=== PATIENT | male | born 1945 | race Caucasian/White ===

== ENCOUNTER → 2018-02-01 09:19 | Outpatient (CLI) | payer MEDICARE, SELFPAY ==
--- NOTE | 2018-02-01 09:21 | DI.MRI.S_ITS ---
PROCEDURE: MR LUMBAR SPINE WO CON INDICATIONS: Lumbosacral spondylosis with facet arthropathy TECHNIQUE: Noncontrast sagittal T1 spin echo and T2 fast echo, sagittal STIR, axial T1 and T2 fast spin echo through the lumbar spine. In cases with scoliosis, additional coronal T2 fast spin echo may be performed. COMPARISON: [facility] , CT, KUB - CT (PNL), 01/13/2010, 9:56. [facility], CR, XR KUB, 04/21/2016, 9:15. FINDINGS: Image quality: Excellent. Alignment and Curvature: Rudimentary ribs at T12. 5 lumbar type vertebral bodies by plain film. There is loss of normal lumbar lordosis. There is mild grade 1 retrolisthesis of L3 on L4. Bone Marrow: Marrow is of normal overall signal. No acute vertebral body compression fractures. There is moderate reactive signal within the superior L5 endplate. Mild reactive signal within the endplates adjacent to the L2-L3, L3-L4, and L5-S1 intervertebral discs is present. Hemangiomas at L1 and L2 are present. Spinal Cord: Conus medullaris terminates at the upper L2 level. Visualized cord demonstrates normal signal and size. Paraspinous Soft Tissues: No paravertebral masses. Mild right hydronephrosis. Moderate right extrarenal pelvic dilatation. This is similar to [id number]. L1-L2: Mild disc desiccation and mild diffuse disc bulge. Mild facet hypertrophy bilaterally. Mild canal stenosis. Mild foraminal stenosis bilaterally. L2-L3: Mild disc height loss and desiccation. Mild diffuse disc bulge with small superimposed left far lateral protrusion/osteophyte. Mild facet hypertrophy bilaterally. Mild canal stenosis. Mild left greater than right foraminal stenosis. L3-L4: Moderate disc height loss and desiccation. Mild diffuse disc bulge/osteophyte with small superimposed right far lateral protrusion. Mild facet hypertrophy bilaterally. Mild canal stenosis. Moderate right and mild left foraminal stenosis. L4-L5: Mild disco loss and desiccation. Mild diffuse disc bulge/osteophyte. Mild facet hypertrophy bilaterally. Mild canal stenosis. Mild foraminal stenosis bilaterally. L5-S1: Mild disc desiccation and diffuse disc bulge. Mild bilateral facet hypertrophy. Mild canal stenosis. Mild foraminal stenosis bilaterally. IMPRESSION: 1. Multilevel degenerative disc and facet disease, causing mild multilevel canal stenoses. Multilevel foraminal stenoses are present, worst on the right at L3-L4, where there is moderate foraminal stenosis. 2. No significant change in right hydronephrosis and right extrarenal pelvic dilatation compared to 2010. Dictated by: Rajwinder Martell M.D. on 02/01/2018 at 10:58 Approved by: Rajwinder Martell M.D. on 02/01/2018 at 11:17
== END ==
PROVIDERS: PCP Family Medicine; Visit Provider Physical Medicine & Rehabilitation
DX: M47.817 Spondylosis without myelopathy or radiculopathy, lumbosacral region (principal); M51.36 Other intervertebral disc degeneration, lumbar region; M51.37 Other intervertebral disc degeneration, lumbosacral region; M48.061 Spinal stenosis, lumbar region without neurogenic claudication; M48.07 Spinal stenosis, lumbosacral region; N13.30 Unspecified hydronephrosis; N28.89 Other specified disorders of kidney and ureter
CPT/HCPCS: 72148

== ENCOUNTER → 2018-02-14 16:12 | Outpatient (CLI) | payer MEDICARE, SELFPAY ==
--- NOTE | 2018-02-14 16:14 | DI.RAD.S_ITS ---
PROCEDURE: XR LUMBAR SPINE MIN 4V INDICATIONS: Lumbosacral spondylosis with facet arthropathy TECHNIQUE: 5 views of the lumbar spine were acquired. COMPARISON: [facility], MR, MR LUMBAR SPINE WO CON, 02/01/2018, 9:31. FINDINGS: Bones: 5 [id number] vertebrae are present. There is mild scoliosis. normal bony alignment. No vertebral body compression fractures. No pars defects. No suspicious bony lesions. There is moderate degenerative disc disease at L3-L4 and mild degenerative disc disease at L1-L2, L2-L3, L4-L5 and L5-S1. Moderate to severe facet arthropathy at L4-L5 and L5-S1. Soft tissues: Overlying bowel gas pattern is normal. No suspicious soft tissue calcifications. Oblique images: No pars defects. IMPRESSION: Degenerative disc and facet disease in lumbar spine as described. Dictated by: Chitra Levine M.D. on 02/14/2018 at 17:03 Approved by: Chitra Levine M.D. on 02/14/2018 at 17:08
== END ==
PROVIDERS: PCP Family Medicine; Visit Provider Physical Medicine & Rehabilitation
DX: M47.817 Spondylosis without myelopathy or radiculopathy, lumbosacral region (principal); M51.37 Other intervertebral disc degeneration, lumbosacral region; M51.36 Other intervertebral disc degeneration, lumbar region; M47.816 Spondylosis without myelopathy or radiculopathy, lumbar region; M46.96 Unspecified inflammatory spondylopathy, lumbar region; M47.27 Other spondylosis with radiculopathy, lumbosacral region
CPT/HCPCS: 72110; 99214

== ENCOUNTER 2018-02-19 09:25 | Outpatient (CLI) | payer MEDICARE, SELFPAY ==
[2018-02-19] VITALS (9 sets, daily range): BP systolic 144–185; BP diastolic 90–105; PULSE 78–88; RESP 16–20; TEMP 36.1; O2SAT 100
--- NOTE | 2018-02-19 09:26 | DI.RAD.S_ITS ---
PROCEDURE: PAIN L/S FACET INJ/BLK 1ST DAYO COMPARISON: [facility], CR, XR LUMBAR SPINE MIN 4V, 02/14/2018, 16:03. [facility], MR, MR LUMBAR SPINE WO CON, 02/01/2018, 9:31. INDICATIONS: Lumbosacral spondylosis with facet arthropathy FINDINGS: Successful right-sided L3-4 and L4-5 needle tip localization for facet epidural steroid injection. IMPRESSION: Right-sided needle tip localization as discussed, in the expected position of the facet joints for epidural steroid injection. Dictated by: Armen Colon M.D. on 02/19/2018 at 13:09 Approved by: Armen Colon M.D. on 02/19/2018 at 13:10
--- NOTE | 2018-02-19 10:23 | PM.PROC.1 ---
Procedures Date/Time Date of procedure: 02/19/18 Time of procedure: 10:23 General Procedure description: PREOP DIAGNOSIS 1. FACET ARTHROPATHY 2. AXIAL LBP 3. MULTILEVEL DDD POST OP DIAGNOSIS 1. FACET ARTHROPATHY 2. AXIAL LBP 3. MULTILEVEL DDD PROCEDURES 1. FLUORSCOPICALLY GUIDED CONTRAST CONTROLLED FACET JOINT INJECTIONS BILATERAL L3/4, L4/5 PHYSICIAN: Tra Naylor DO INDICATIONS: Nuno is referred by Dr. Dent for treatment of Axial LBP FINDINGS Multilevel Facet Arthropathy with Clinically significant axial LBP DESCRIPTION OF PROCEDURE Fluoroscopically guided, contrast-controlled bilateral L3/4, L4/5 facet joint injections. Following denial of allergy and review of potential side effects and complications, including, but not necessarily limited to, infection, allergic reaction, local tissue breakdown, stroke, temporary or permanent nerve injury, paralysis, and possible , the patient indicated that the patient understood and agreed to proceed. An informed consent document was signed by the patient, witnessed by a nurse, and placed in the patient's chart. Additionally, other treatment options including medications, modalities, and physical therapy were reviewed with the patient. After review of previous anaesthesic history and IV conscious sedation the patient was deemed safe to proceed with todays procedure with IV conscious sedation as ASA class II designation. Safety time-out was performed to confirm patient ID, procedure to be performed and site of procedure. IV sedation was accomplished with a combination of 4mg of Versed was administered by the RN after DO order, titrated to patient comfort during the course of the procedure while the patient remained responsive to all verbal commands. In the prone position, following sterile prep and drape of the lumbar region, the posterior aspect of the L3/4, L4/5 facet joints were identified fluoroscopically. The skin was anesthetized via a 25-gauge 1.5-inch needle with 1% lidocaine solution into the corresponding facet joints. At this point, a 22-gauge 3.5-inch spinal needle was atraumatically introduced and advanced under fluoroscopic guidance into the corresponding facet joints. Following negative aspiration, injections of approximately 0.2-cc of Isovue 200 confirmed interarticular placement without vascular uptake. The identical procedure was then performed at the L3/4, L4/5 facet joints on the left. Radiological data, including multiple fluoroscopic views of the lumbosacral spine, reveal a spinal needle at the L3/4, L4/5 facet joints bilaterally. Subsequent views show flow of contrast material both superiorly and inferiorly within the joint space without vascular or intrathecal uptake. At this point, a total of 0.5 cc including a mixture of 0.25 cc Marcaine and 0.25 cc betamethasone was injected without complication into each of the corresponding facet joints. The patient tolerated the procedure well without signs or symptoms of complications prior to transfer to the recovery area continued monitoring without incident. The patient was then transferred to the recovery area where they were observed for an appropriate period of time after the injection. The patient reported a VAS score of 7 prior to the procedure and a post-procedure VAS of 0. Total Fluoroscopy Time: 20.3 seconds Total Conscious Sedation Time: 24min POST OP INSTRUCTIONS The patient was provided a Pain Log to continue to record their response to the target-specific procedure prior to follow-up visit with their referring physician. Additionally, specific post-injection care instructions and a contact number to our office were provided if concerns arise regarding possible complications associated with the procedure are suspected. Tra Naylor DO Complications: none
[2018-02-19] MEDS: MIDAZOLAM 5 MG/5 ML VIAL IV (10:29)
[2018-02-19] MEDS: BUPIVACAINE 0.5% (PF) VIAL 5 ML INJ (10:36)
[2018-02-19] MEDS: IOPAMIDOL 15 ML VIAL 3 ML INJ (10:36)
[2018-02-19] MEDS: BETAMETHASONE 30 MG/5 ML MDV 12 MG INJ (10:37)
[2018-02-19] MEDS: LIDOCAINE 1% 20 ML INJ 10 ML INJ (10:37)
--- NOTE | 2018-02-20 14:13 | PC.NURSE ---
FOLLOW UP PHONE CALL MADE. PT STATES PAIN HAS DECREASED. PT STATED HE HAD ASKED ABOUT HIS NECK, WHICH DR. MELVIN TOLD HIM COULD NOT BE VISUALIZED ON MRI. PT ASKING IF ANOTHER MRI IS NEEDED. HAVE LEFT MSG WITH DR. MELVIN ABOUT PT'S CONCERN.
== END 2018-02-19 11:08 ==
LOC: RAD 09:25
PROVIDERS: PCP Family Medicine; Visit Provider Physical Medicine & Rehabilitation
DX: M47.816 Spondylosis without myelopathy or radiculopathy, lumbar region (principal); M51.36 Other intervertebral disc degeneration, lumbar region; M47.817 Spondylosis without myelopathy or radiculopathy, lumbosacral region; M54.5 Low back pain
CPT/HCPCS: 64493; 99152; J0702; J2250

== ENCOUNTER → 2018-03-08 07:56 | Outpatient (CLI) | payer MEDICARE, SELFPAY ==
--- NOTE | 2018-03-08 07:59 | DI.MRI.S_ITS ---
PROCEDURE: MR CERVICAL SPINE WO CON INDICATIONS: cervical spondylosis TECHNIQUE: Noncontrast sagittal T1 spin echo and T2 fast spin echo, sagittal STIR, foraminal oblique sagittal T2 fast spin echo, and axial gradient echo or T2 fast spin echo through the cervical spine. COMPARISON: None. FINDINGS: Image quality: Excellent. Alignment and Curvature: There is normal bony alignment. Bone Marrow: Marrow demonstrates normal overall signal. Spinal Cord: Visualized spinal cord has normal size and signal. No cerebellar tonsillar herniation. Paraspinous Soft Tissues: No paravertebral masses. Prevertebral soft tissues are normal in thickness. C2-C3: Loss of disc signal. Mild diffuse disc bulge. No central stenosis. Mild right and moderate left facet hypertrophy. Severe left neural foraminal narrowing with flattening deformity exiting left C3 nerve root. C3-C4: Loss of disc signal. Mild loss of disc height. Mild diffuse disc bulge. No central stenosis. Moderate bilateral facet hypertrophy. Mild bilateral uncovertebral joint hypertrophy. Moderate to severe bilateral neural foraminal narrowing with slight flattening deformity of the exiting C4 nerve roots. C4-C5: Loss of disc signal. Mild, diffuse disc bulge. Moderate bilateral facet hypertrophy. Mild bilateral uncovertebral joint hypertrophy. Mild narrowing of the central canal. Severe right and moderate left neural foraminal narrowing with flattening deformity exiting right C5 nerve root. C5-C6: Loss of the signal. Mild, diffuse disc bulge. Mild narrowing of the central canal. Moderate bilateral facet hypertrophy. Moderate bilateral uncovertebral joint hypertrophy. Severe right and moderate left neural foraminal narrowing with flattening deformity exiting right C6 nerve root. C6-C7: Loss of disc signal and height. Mild, diffuse disc bulge. Mild central canal narrowing. Mild bilateral facet hypertrophy. Moderate bilateral uncovertebral joint hypertrophy. Moderate bilateral neural foraminal narrowing. No neural impingement. C7-T1: Loss of the signal. No central stenosis. No neural foraminal narrowing. No neural impingement. IMPRESSION: 1. Multilevel degenerative disc disease. 2. Multilevel facet arthropathy and uncovertebral joint hypertrophy. 3. Mild C4-C5, C5-C6 and C6-C7 central canal narrowing. 4. Severe right and moderate left C4-C5 and C5-C6 neural foraminal narrowing. Severe left C2 and C3 neural foraminal narrowing. Moderate to severe bilateral C3-C4 neural foraminal narrowing. Moderate bilateral C6-C7 neural foraminal narrowing. 5. Slight flattened deformity of the exiting left C3 nerve root, the exiting bilateral C4 nerve roots, the exiting right C5 nerve root and the exiting right C6 nerve root secondary to neural foraminal narrowing. Please correlate with clinical data. Dictated by: Nyla Barber MD, PhD on 03/08/2018 at 15:54 Approved by: Nyla Barber MD, PhD on 03/08/2018 at 16:10
--- NOTE | 2018-03-08 07:59 | DI.RAD.S_ITS ---
PROCEDURE: XR CERVICAL SPINE 4V OR 5V INDICATIONS: cervical spondylosis TECHNIQUE: 7 views of the cervical spine acquired. COMPARISON: None. FINDINGS: Bones: No fractures or dislocations to the C7-T1 level. Minimal anterolisthesis of C5 on C6 is seen. Degenerative endplate changes are noted at C5-6 and C6-7 levels with decreased intervertebral disc space. There is suggestion of mild bilateral neuroforaminal narrowing at C5-6 level slightly worse on the right side. Soft tissues: No prevertebral soft tissue swelling. IMPRESSION: Degenerative disc disease at C5-6 and C6-7 levels with a minimal anterolisthesis of C5 on C6 and mild bilateral neural foramina narrowing at C5-6 level. No compression fracture. Dictated by: Amarjit Jacobsen M.D. on 03/08/2018 at 8:35 Approved by: Amarjit Jacobsen M.D. on 03/08/2018 at 8:36
== END ==
PROVIDERS: PCP Family Medicine; Visit Provider Physical Medicine & Rehabilitation
DX: M47.22 Other spondylosis with radiculopathy, cervical region (principal); M50.11 Cervical disc disorder with radiculopathy, high cervical region; M48.02 Spinal stenosis, cervical region
CPT/HCPCS: 72050; 72141

== ENCOUNTER → 2019-11-08 09:40 | Outpatient (CLI) | payer MEDICARE, SELFPAY ==
[2019-11-09 21:24] LABS: COVID19 Sendout Not Detected (Not Detect)
== END ==
PROVIDERS: PCP Family Medicine; Visit Provider Family Medicine
DX: Z01.812 Encounter for preprocedural laboratory examination (principal)
CPT/HCPCS: 87635

== ENCOUNTER 2019-11-11 08:59 | Outpatient (CLI) | payer MEDICARE, SELFPAY ==
[2019-11-11] VITALS (9 sets, daily range): BP systolic 144–173; BP diastolic 83–98; PULSE 62–72; RESP 15–16; TEMP 36.5; O2SAT 96–100
--- NOTE | 2019-11-11 09:01 | DI.RAD.S_ITS ---
PROCEDURE: PAIN L/SI FACET INJ/BLK 1STL INDICATIONS: SPONDYLOSIS FINDINGS: Fluoroscopic spot filming was performed to verify placement of spinal needles at the L3, L4, L5 level(s), as labeled on the films. Appropriate location(s) of the needle tip(s) was confirmed by injection of iodinated contrast. Dictated by: Contreras Burks M.D. on 11/11/2019 at 13:01 Approved by: Contreras Burks M.D. on 11/11/2019 at 13:01
[2019-11-11] MEDS: MIDAZOLAM 5 MG/5 ML VIAL IV (10:54)
[2019-11-11] MEDS: fentaNYL 100 MCG/2 ML INJ 50 MCG IV (10:54)
[2019-11-11] MEDS: BUPIVACAINE 0.5% (PF) VIAL 5 ML INJ (11:00)
[2019-11-11] MEDS: IOPAMIDOL 15 ML VIAL 3 ML INJ (11:00)
[2019-11-11] MEDS: LIDOCAINE 1% 20 ML 10 ML INJ (11:00)
--- NOTE | 2019-11-11 11:04 | PC.NURSE ---
ASSISTING PT OFF TABLE AND TRANSPORTING TO POST PROC AREA IN STABLE CONDITION. PASSING RN CARE OF PT OFF TO KONSTANTIN KING.
--- NOTE | 2019-11-11 11:14 | P.PCN_ITS ---
Procedures Date/Time Date of procedure: 11/11/19 Time of procedure: 11:15 General Procedure description: POST OP DIAGNOSIS 1. FACET ARTHROPATHY PROCEDURES 1. BILATERAL L3, L4 AND L5 DIAGNOSTIC MB BLOCKS PHYSICIAN: DO KRISTA Mackey Nuno is referred by for treatment of Bilateral Axial LBP. DESCRIPTION OF PROCEDURE Fluoroscopically guided, contrast-controlled bilateral L3, L4 and L5 medial branch blocks with 0.5cc of 0.5% Marcaine. Following review of allergy and review of potential side effects and complications, including, but not necessarily limited to, infection, allergic reaction, local tissue breakdown, nerve injury, paralysis, stroke and possible , the patient indicated that the patient understood and agreed to proceed. An informed consent document was signed by the patient, witnessed by a nurse, and placed in the patient's chart. After review of previous anaesthesic history and IV conscious sedation the patient was deemed safe to proceed with todays procedure with IV conscious sedation as ASA class II designation. Safety time-out was performed to confirm patient ID, procedure to be performed and site of procedure. IV sedation was accomplished with a combination of 2mg of Versed and 50mcg of Fentantyl was administered by the RN after DO order, titrated to patient comfort during the course of the procedure while the patient remained responsive to all verbal commands In the prone position, following sterile prep and drape of the lumbar region, the right L3, L4 AND L5 anatomical location of the medial branch of the dorsal ramus was identified fluoroscopically. Subsequently an anesthetic skin wheal using 1% lidocaine solution was initiated at each of the anatomical spots. Subsequently then a 22-gauge 3.5-inch spinal needle was atraumatically introduced and advanced under fluoroscopic guidance at each of the corresponding sites at the right L3, L4 and L5 MB. After negative aspiration, 0.2cc of Isovue 200 was injected, confirming placement without vascular or intrathecal uptake. Subsequently then 0.5cc of 0.5% Marcaine solution was injected at each of the corresponding sites at the right L3, L4 and L5 medial branch locations. The identical procedure was replicated on the left. The patient tolerated the procedure well without signs or symptoms of complications. The patient tolerated the procedure well without signs or symptoms of complications prior to transfer to the recovery area continued monitoring without incident. Post-procedure, the patient was monitored initiating provocative activities to measure the amount of relief from block of the facetogenic pain. The patient reported a VAS of 7 prior to the procedure and a post-procedure VAS of 1. It has been a pleasure to assist in the diagnostic and therapeutic care of your patient. Total Fluoroscopy Time: 12 seconds Total Conscious Sedation Time: 24min POST OP INSTRUCTIONS The patient was provided with a Pain Log to complete over the next several hours and subsequent days prior to the patient's follow up with the ordering physician. 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 The patient is aware, was provided, once again, with a Pain Log and will follow up with the referring physician for review and clinical correlation Tra Naylor DO Complications: none
--- NOTE | 2019-11-11 11:14 | PC.NURSE ---
Pt returned via wheelchair post procedure, is alert and able to get from w/c to chair with standby assist. Resumed monitoring from KONSTANTIN Hooper.
== END 2019-11-11 11:38 | disposition home or self-care (01) ==
LOC: RAD 09:00
PROVIDERS: PCP Family Medicine; Referring Provider Physical Medicine & Rehabilitation; Visit Provider Physical Medicine & Rehabilitation
DX: M47.816 Spondylosis without myelopathy or radiculopathy, lumbar region (principal); M47.817 Spondylosis without myelopathy or radiculopathy, lumbosacral region; M54.5 Low back pain
CPT/HCPCS: 64493; 64494; 99152; J2250; J3010

== ENCOUNTER → 2019-11-24 09:48 | Outpatient (CLI) | payer MEDICARE, SELFPAY ==
--- NOTE | 2019-11-24 09:50 | DI.RAD.S_ITS ---
PROCEDURE: XR LUMBAR SPINE MIN 4V INDICATIONS: Chronic progressive low back pain TECHNIQUE: Via views of the lumbar spine were acquired. COMPARISON: [facility], CR, XR LUMBAR SPINE MIN 4V, 02/14/2018, 16:03. FINDINGS: Bones: 5 nonrib-bearing vertebrae are present. There is normal bony alignment. No vertebral body compression fractures. No suspicious bony lesions. Note is made of a slight degree of degenerative disc disease with disc height reduction mild in severity at L4-5 and moderate degree of such degeneration at L5-S1. There is facet osteoarthritis showing a similar increase in prominence from L3-S1, most pronounced at L5-S1 where mild foraminal and spinal stenosis likely present. Soft tissues: Overlying bowel gas pattern is normal. No suspicious soft tissue calcifications. Oblique images: No pars defects. IMPRESSION: No acute disease. Progressively greater degenerative disc disease and facet osteoarthritis from L3 inferiorly and most prominent at L5-S1. The degenerative changes at this level are slightly progressed from the comparison 02/14/18. Dictated by: Armen Colon M.D. on 11/24/2019 at 11:42 Approved by: Armen Colon M.D. on 11/24/2019 at 11:45
== END ==
PROVIDERS: PCP Family Medicine; Referring Provider Physical Medicine & Rehabilitation; Visit Provider Physical Medicine & Rehabilitation
DX: M47.817 Spondylosis without myelopathy or radiculopathy, lumbosacral region (principal); M47.816 Spondylosis without myelopathy or radiculopathy, lumbar region; M54.5 Low back pain; M51.36 Other intervertebral disc degeneration, lumbar region; M51.37 Other intervertebral disc degeneration, lumbosacral region; M46.96 Unspecified inflammatory spondylopathy, lumbar region; G89.29 Other chronic pain
CPT/HCPCS: 72110; 99213

== ENCOUNTER → 2019-12-01 07:42 | Outpatient (CLI) | payer MEDICARE, SELFPAY ==
--- NOTE | 2019-12-01 07:43 | DI.MRI.S_ITS ---
PROCEDURE: MR LUMBAR SPINE WO CON INDICATIONS: Chronic progressive low back pain TECHNIQUE: Noncontrast sagittal T1 spin echo and T2 fast echo, sagittal STIR, axial T1 and T2 fast spin echo through the lumbar spine. In cases with scoliosis, additional coronal T2 fast spin echo may be performed. COMPARISON: [facility], CR, XR LUMBAR SPINE MIN 4V, 11/24/2019, 8:57. [facility], MR, MR LUMBAR SPINE WO CON, 02/01/2018, 9:31. FINDINGS: Image quality: Excellent. Alignment and Curvature: There is loss of normal lumbar lordosis. There are 5 lumbar-type vertebral bodies by plain film. There is mild, grade 1 retrolisthesis of L2 on L3 and L3 on L4. Bone Marrow: Marrow is of normal overall signal. No acute vertebral body compression fractures. There is mild reactive signal within the endplates adjacent to the the T12-L1, L1-L2, L2-L3, L3-L4, and L4-L5 intervertebral discs. Moderate reactive signal within the endplates adjacent to the L5-S1 intervertebral disc. Small hemangiomata L1 and L2. Schmorl's nodes invaginate the superior L5 and inferior L3 end plates. Spinal Cord: Conus medullaris terminates at the upper L2 level. Visualized cord demonstrates normal signal and size. Paraspinous Soft Tissues: No paravertebral masses. L1-L2: Moderate disc height loss and desiccation. Mild diffuse disc bulge. Mild facet and ligament flavum hypertrophy. Mild canal stenosis. Mild bilateral foraminal stenosis. L2-L3: Moderate disc height loss and desiccation. Mild diffuse disc bulge with superimposed small broad-based left posterolateral protrusion. Mild facet and ligamentum flavum hypertrophy. Mild epidural lipomatosis. Mild canal stenosis. Mild bilateral foraminal stenosis, left greater than right. No change. L3-L4: Moderate disc height loss and desiccation. Mild diffuse disc bulge. Mild facet and ligament flavum hypertrophy. Mild epidural lipomatosis. Mild canal stenosis. Moderate right and mild left foraminal stenosis. No change. L4-L5: Moderate disc height loss and desiccation. Mild diffuse disc bulge/osteophyte. Mild facet and ligament flavum hypertrophy bilaterally. Mild canal stenosis. Moderate bilateral foraminal stenosis. No change. L5-S1: Moderate disc height loss and desiccation. Mild diffuse disc bulge. Mild bilateral facet hypertrophy. Mild canal stenosis. Moderate bilateral foraminal stenosis. IMPRESSION: 1. Multilevel degenerative disc and facet disease, as well as ligamentum flavum hypertrophy and epidural lipomatosis. 2. Mild multilevel canal stenoses. 3. Multilevel foraminal stenoses, worst at L3-L4, L4-L5, and L5-S1, where there are moderate foraminal stenoses as described above. Dictated by: Rajwinder Martell M.D. on 12/01/2019 at 9:57 Approved by: Rajwinder Martell M.D. on 12/01/2019 at 10:29
== END ==
PROVIDERS: PCP Family Medicine; Referring Provider Physical Medicine & Rehabilitation; Visit Provider Physical Medicine & Rehabilitation
DX: M54.5 Low back pain (principal); M47.817 Spondylosis without myelopathy or radiculopathy, lumbosacral region; M46.96 Unspecified inflammatory spondylopathy, lumbar region; M51.36 Other intervertebral disc degeneration, lumbar region; M51.37 Other intervertebral disc degeneration, lumbosacral region; M48.061 Spinal stenosis, lumbar region without neurogenic claudication; M48.07 Spinal stenosis, lumbosacral region; E88.2 Lipomatosis, not elsewhere classified; G89.29 Other chronic pain
CPT/HCPCS: 72148

== ENCOUNTER → 2019-12-27 08:36 | Outpatient (CLI) | payer MEDICARE, SELFPAY ==
[2019-12-28 08:10] LABS: COVID19 Sendout Not Detected (Not Detect)
== END ==
PROVIDERS: PCP Family Medicine; Visit Provider Nurse Practitioner
DX: Z01.812 Encounter for preprocedural laboratory examination (principal)
CPT/HCPCS: 87635

== ENCOUNTER 2019-12-30 07:36 | Outpatient (CLI) | payer MEDICARE, SELFPAY ==
[2019-12-30] VITALS (13 sets, daily range): BP systolic 139–173; BP diastolic 77–101; PULSE 58–67; RESP 14–16; TEMP 36.5; O2SAT 97–100
--- NOTE | 2019-12-30 07:37 | DI.RAD.S_ITS ---
PROCEDURE: PAIN L/S MED/LAT N RFA BILAT INDICATIONS: SPONDYLOSIS FINDINGS: Fluoroscopic spot filming was performed to verify placement of spinal needles at the L3, L4, and L5 levels on the left and on the right, as labeled on the films. IMPRESSION: Intraprocedural examination within normal limits. Dictated by: Cristian Carr M.D. on 12/30/2019 at 10:07 Approved by: Cristian Carr M.D. on 12/30/2019 at 10:07
[2019-12-30] MEDS: MIDAZOLAM 5 MG/5 ML VIAL IV (08:42)
[2019-12-30] MEDS: fentaNYL 100 MCG/2 ML INJ 50 MCG IV (08:43)
[2019-12-30] MEDS: LIDOCAINE 1% 20 ML 10 ML INJ (08:52)
[2019-12-30] MEDS: BUPIVACAINE 0.5% (PF) VIAL 5 ML INJ (08:53)
--- NOTE | 2019-12-30 09:17 | P.PCN_ITS ---
Date/Time/Diagnoses Date of procedure: 12/30/19 Time of procedure: 09:17 Pre-procedure diagnosis: 1. RECALCITRANT FACET ARTHROPATHY Post-procedure diagnosis: same Procedure Notes Procedure: 1. BILATERAL L3, L4 AND L5 MEDIAL BRANCH RADIOFREQUENCY NEUROTOMY Indications: Nuno is referred by Dr. Dent for treatment of facet arthropathy. Physician: Tra Naylor Total Fluoroscopy time (seconds): 16 Total sedation minutes: 35 Complications: none Procedure in detail & Post-procedure care: DESCRIPTION OF PROCEDURE Bilateral L3, L4 and L5 medial branch radiofrequency neurotomy The patient is well known to this clinic having undergone previous facet injections with good but temporary relief. The patient has experienced appropriate, concordant relief with previous facet and median branch blocks but the patient's pain has been recalcitrant to further conservative measures. Therefore, based upon the patient's relief and persistent symptoms, the patient is considered an appropriate candidate for facet rhizotomy. All of the patient's questions regarding the risks versus benefits of the procedure, including, but not limited to, bleeding, infection, temporary as well as lasting nerve injury, paralysis, stroke, and , as well treatment alternatives were answered to satisfaction. After obtaining informed consent, denial of pertinent drug allergies, as well as being made aware of the potential risks of bleeding, infection, spinal cord trauma, paralysis, temporary and permanent nerve damage, seizure, stroke, and possible , the patient was brought to the fluoroscopy suite and positioned prone on the fluoroscopy table. The lumbar region was prepped with Betadine and covered with a fenestrated drape in the usual sterile fashion. Appropriate monitors applied including pulse oxime ter, pulse, and blood pressure for regular monitoring throughout the procedure. After review of previous anaesthesic history and IV conscious sedation the patient was deemed safe to proceed with today's procedure with IV conscious sedation as ASA class II designation. Safety time-out was performed to confirm patient ID, procedure to be performed and site of procedure. IV sedation was accomplished with a combination of 3mg of Versed and 50mcg of Fentanyl administered by the RN after DO order, titrated to patient comfort during the course of the procedure while the patient remained responsive to all verbal commands. After local infiltration using 1% lidocaine, under fluoroscopic guidance, a 10- cm RF insulated needle with a 10-mm active tip was positioned parallel to the junction of the right the superior articulating process where the L5 medial branch resides. Needle placement was confirmed with motor stimulation of .5v on the right which produced local stimulation without radicular component. The stimulation was then increased to 1.5v with, once again, only local multifidus stimulation without radicular component. The needle was then removed and the identical procedure was performed along the length of the right L4 medial branch with motor stimulation at .7v on the right. The identical procedure was once again performed along the length of the right L3 and medial branch with motor stimulation of .5v on the right. The medial branches were then anesthetised with 0.5% marcaine. This was then followed by two discreet lesions performed at 80 degrees Celsius for 90 seconds each. The identical procedures were repeated on the left. The patient tolerated the procedure well without signs or symptoms of complications prior to transfer to the recovery area continued monitoring without incident. The patient was then transferred to the recovery area where they were observed for an appropriate period of time after the injection. The patient reported a VAS score of 7 prior to the procedure and a post-procedure VAS of 0. POST OP INSTRUCTIONS The patient was provided a Pain Log to continue to record the patient's response to the target-specific procedure prior to the patient's follow-up visit with the referring physician. Additionally, specific post-injection care instructions and a contact number to our office were provided if concerns arise regarding possible complications associated with the procedure are suspected.
--- NOTE | 2019-12-30 09:31 | PC.NURSE ---
Pt returned to pre proc room via . Stable transfer from wc to chair. Monitoring resumed by this RN
--- NOTE | 2019-12-30 14:18 | PC.NURSE ---
Pt tolerated procedure well. No issues. 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 IV Fent and Midazolam given by KONSTANTIN Mcnulty, all others by Dr. Naylor.
== END 2019-12-30 10:10 | disposition home or self-care (01) ==
LOC: RAD 07:37
PROVIDERS: PCP Family Medicine; Referring Provider Physical Medicine & Rehabilitation; Visit Provider Physical Medicine & Rehabilitation
DX: M47.816 Spondylosis without myelopathy or radiculopathy, lumbar region (principal)
CPT/HCPCS: 64635; 64636; 99152; 99153; J2250; J3010